=== PATIENT | female | born 2000 | race Caucasian/White ===

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

== ENCOUNTER 2018-03-15 05:41 | Observation (INO) | payer OTHER ==
[2018-03-15 06:57] VITALS: BMI 36.3
--- NOTE | 2018-03-15 07:14 | PDOC ---
History of Present Illness <Edilson Vazquez - Last Filed: 03/15/18 14:43> - General History Source: Patient Exam Limitations: No Limitations - History of Present Illness Initial Comments: 03/15/18 07:23 17 year old woman with no significant past medical history who presents with 6 days of sore throat, productive cough, diarrhea and intermittent R sided abdominal pain that would come on as sharp and then resolve and now with subjective fever and nausea overnight. The patient admits to some headache but denies chest pain, shortness of breath, current abdominal pain, dysuria, hematuria, vaginal discharge. The patient is taking OCPs and reports irregular menses since May. She is being followed by her PCP at [facility]. She has no other complaints at bedside. <Fátima Dinh - Last Filed: 03/15/18 18:41> - General Chief Complaint: Nausea/Vomiting Stated Complaint: FEVER/VOMITING Time Seen by Provider: 03/15/18 07:12 Past History <Edilson Vazquez - Last Filed: 03/15/18 14:43> - Past Medical History COPD: No DVT: No - Immunization History Immunization Up to Date: Yes - Suicide/Smoking/Psychosocial Hx Smoking Status: No Smoking History: Never smoked Have you smoked in the past 12 months: No Number of Cigarettes Smoked Daily: 0 Cigars Per Day: 0 Information on smoking cessation initiated: No Hx Alcohol Use: No Drug/Substance Use Hx: No Substance Use Type: None <Fátima Dinh - Last Filed: 03/15/18 18:41> - Past Medical History Allergies/Adverse Reactions: Allergies Allergy/AdvReac Type Severity Reaction Status Date / Time nickel Allergy Intermediate Verified 03/15/18 06:57 lactase [From Dairy Aid] Allergy Verified 03/15/18 06:57 lentils Allergy Verified 03/15/18 06:57 raw vegetable Allergy Verified 03/15/18 06:57 wheat Allergy Verified 03/15/18 06:57 Home Medications: Ambulatory Orders Nitrofurantoin Monohyd/M-Cryst [Macrobid -] 100 mg PO BID #14 capsule 03/15/18 Review of Systems - Review of Systems Able to Perform ROS?: Yes Is the patient limited Ukrainian proficient: No Constitutional: Yes: Fever. No: Chills, Diaphoresis HEENTM: No: Blurred Vision, Tinnitus Respiratory: Yes: Cough. No: Orthopnea, Shortness of Breath Cardiac (ROS): No: Chest Pain, Lightheadedness, Palpitations ABD/GI: Yes: Diarrhea, Nausea. No: Constipated, Vomiting : No: Burning, Dysuria, Hematuria Neurological: Yes: Headache. No: Numbness, Paresthesia, Tingling <Fátima Dinh - Last Filed: 03/15/18 18:41> *Physical Exam - Vital Signs Last Vital Signs Temp Pulse Resp BP Pulse Ox 98.2 F 101 H 18 123/76 97 03/15/18 05:45 03/15/18 05:45 03/15/18 05:45 03/15/18 05:45 03/15/18 05:45 <Edilson Vazquez - Last Filed: 03/15/18 14:43> - Vital Signs Last Vital Signs Temp Pulse Resp BP Pulse Ox 98.2 F 101 H 18 123/76 97 03/15/18 05:45 03/15/18 05:45 03/15/18 05:45 03/15/18 05:45 03/15/18 05:45 - Physical Exam Comments: 03/15/18 07:35 GENERAL: Awake, alert, and fully oriented, in no acute distress HEAD: No signs of trauma, normocephalic, atraumatic EYES: EOMI, sclera anicteric, conjunctiva clear ENT: oropharynx clear without exudates. Moist mucosa NECK: Normal ROM, supple LUNGS: No distress, speaks full sentences, clear to auscultation bilaterally HEART: Regular rate and rhythm, normal S1 and S2, no murmurs, rubs or gallops, peripheral pulses normal and equal bilaterally. ABDOMEN: Soft, nontender, normoactive bowel sounds. No guarding, no rebound. No masses EXTREMITIES : Normal inspection, Normal range of motion, no edema. No clubbing or cyanosis. NEUROLOGICAL: Cranial nerves II through XII grossly intact. Normal speech, normal gait, no focal sensorimotor deficits SKIN: Warm, Dry, normal turgor, no rashes or lesions noted <Fátima Dinh - Last Filed: 03/15/18 18:41> Moderate Sedation - Procedure Monitoring Vital Signs: Procedure Monitoring Vital Signs Temperature 98.2 F 03/15/18 05:45 Pulse Rate 101 H 03/15/18 05:45 Respiratory Rate 18 03/15/18 05:45 Blood Pressure 123/76 03/15/18 05:45 O2 Sat by Pulse Oximetry (%) 97 03/15/18 05:45 <TaylorEdilson - Last Filed: 03/15/18 14:43> - Procedure Monitoring Vital Signs: Procedure Monitoring Vital Signs Temperature 98.2 F 03/15/18 05:45 Pulse Rate 101 H 03/15/18 05:45 Respiratory Rate 18 03/15/18 05:45 Blood Pressure 123/76 03/15/18 05:45 O2 Sat by Pulse Oximetry (%) 97 03/15/18 05:45 <Fátima Dinh - Last Filed: 03/15/18 18:41> ED Treatment Course - LABORATORY CBC & Chemistry Diagram: 03/15/18 07:55 03/15/18 07:55 - ADDITIONAL ORDERS Additional order review: Laboratory Results 03/15/18 03/15/18 03/15/18 13:56 07:55 07:55 Sodium 138 Potassium 3.8 Chloride 107 Carbon Dioxide 22 Anion Gap 9 BUN 9 Creatinine 0.7 Creat Clearance w eGFR > 60 Random Glucose 90 Calcium 8.7 Total Bilirubin 0.2 AST 15 ALT 30 Alkaline Phosphatase 92 Total Protein 7.9 Albumin 3.9 Beta HCG, Quant 149.0 Urine Color Yellow Urine Appearance Cloudy Urine pH 5.0 Ur Specific [place] 1.030 Urine Protein 1+ H Urine Glucose (UA) Negative Urine Ketones Trace H Urine Blood Negative Urine Nitrite Positive Urine Bilirubin Negative Urine Urobilinogen Negative Ur Leukocyte Esterase Trace Urine WBC (Auto) 15 Urine RBC (Auto) 3 Ur Epithelial Cells Few Calcium Oxalate Crystal Few Urine Bacteria Moderate Urine Mucus Many Urine HCG, Qual Positive 03/15/18 07:55 RBC 4.27 MCV 83.4 MCHC 34.6 RDW 14.8 MPV 8.2 Neutrophils % 68.1 D Lymphocytes % 22.3 D Monocytes % 7.7 Eosinophils % 1.5 Basophils % 0.4 - Medications Given in the ED: ED Medications Discontinued Medications Generic Name Dose Route Start Last Admin Trade Name Freq PRN Reason Stop Dose Admin Acetaminophen 1,000 mg 03/15/18 07:24 03/15/18 08:02 Ofirmev Injection - IVPB 03/15/18 07:25 1,000 mg ONCE ONE Administration Ondansetron HCl 4 mg 03/15/18 07:24 03/15/18 08:02 Zofran Injection IVPUSH 03/15/18 07:25 4 mg ONCE ONE Administration <Alycia Vazquezan - Last Filed: 03/15/18 14:43> - LABORATORY CBC & Chemistry Diagram: 03/15/18 07:55 03/15/18 07:55 <Fátima Dinh - Last Filed: 03/15/18 18:41> Medical Decision Making - Medical Decision Making 03/15/18 07:33 17 year old woman with no significant past medical history who presents with 6 days of sore throat, productive cough, diarrhea and intermittent R sided abdominal pain that would come on as sharp and then resolve and now with subjective fever and nausea overnight. ED Course: Consider influenza vs uti vs viral URI cbc, cmp, ua, ucx, upreg tylenol, zofran, ivf 03/15/18 17:36 The patient had a positive urine test but TVUS could not visualize IUP cannot rule out ectopic Beta hcg at 1-2 weeks Patient with continued RLQ pain on reassessment Potisitve obturator and psoas test Cannot r/o appendicitis Less likely as afebrile without white count UA positive for UTI will dose macrobid Patient pending Pelvis US with potential MRI if appendix cannot be visualized. 03/15/18 18:28 appendix cannot be visualized, patient will need MRI in the AM Patient admitted for ED Obs <Fátima Dinh - Last Filed: 03/15/18 18:41> *DC/Admit/Observation/Transfer <Edilson Vazquez - Last Filed: 03/15/18 14:43> <Fátima Dinh - Last Filed: 03/15/18 18:41> Diagnosis at time of Disposition: Abdominal pain, - Discharge Dispostion Disposition: HOME Condition at time of disposition: Fair - Prescriptions Prescriptions: Nitrofurantoin Monohyd/M-Cryst [Macrobid -] 100 mg PO BID #14 capsule - Referrals Referrals: Pavithra Chaves [Primary Care Provider] - - Patient Instructions Printed Discharge Instructions: DI for Ectopic , DI for Abdominal Pain -- Early Additional Instructions: Your test today was positive. However, we did not see anything on your ultrasound today. This may be because it is still early in the . This may also be due to a condition called ectopic , a potentially life threatening emergency. You MUST follow up with an project facilitator or return to the ER in 48 hours for a repeat ultrasound and blood tests. If you experience recurrent or persistent pain, fevers, vomiting, vaginal bleeding, or any other concerning symptoms, return to the ER immediately. - Post Discharge Activity
[2018-03-15] MEDS ORDERED: SODIUM CHLORIDE 1,000 ML IV SCH (07:15)
[2018-03-15] MEDS ORDERED: ONDANSETRON 4 MG/2 ML VIAL IVPUSH ONE (07:24)
[2018-03-15] MEDS ORDERED: ACETAMINOPHEN 1000 MG/100 ML VIAL (NON FORMULARY) IVPB ONE (07:24)
[2018-03-15] MEDS ORDERED: ACETAMINOPHEN INJECTION 100 ML IVPB ONE (07:36)
[2018-03-15] MEDS ORDERED: ONDANSETRON 4 MG/2 ML VIAL ONE (07:36)
--- NOTE | 2018-03-15 07:55 | PDOC ---
Attending Attestation - Resident Resident Name: NikolasZane dashie - ED Attending Attestation I have performed the following: I have examined & evaluated the patient, The case was reviewed & discussed with the resident, I agree w/resident's findings & plan, Exceptions are as noted - HPI HPI: 03/15/18 07:51 17 F with no PMH presents to ED with fevers, nausea, abdominal pain, and sore throat. Pt states that she started having a sore throat 3 days ago. Pt started having subjective fevers last night. Did not take her temp. Today, pt notes feeling nauseous and having lower abdominal pain. Pt states the pain is localized to her RLQ. Endorses diarrhea. Denies vaginal discharge/bleeding. No dysuria. - Physicial Exam PE: 03/15/18 07:53 GENERAL: Awake, alert, and fully oriented, in no acute distress. HEAD: No signs of trauma EYES: PERRLA, EOMI, sclera anicteric, conjunctiva clear ENT: Auricles normal inspection, hearing grossly normal, nares patent, oropharynx clear without exudates. Moist mucosa NECK: Nontender, no stepoffs, Normal ROM, supple, no lymphadenopathy, JVD, or masses LUNGS: Breath sounds equal, clear to auscultation bilaterally. No wheezes, and no crackles HEART: Regular rate and rhythm, normal S1 and S2, no murmurs, rubs or gallops ABDOMEN: + RLQ tenderness, normoactive bowel sounds. No guarding, no rebound. No masses EXTREMITIES: Normal range of motion, no edema. No clubbing or cyanosis. No cords, erythema, or tenderness NEUROLOGICAL: Cranial nerves II through XII intact. 5/5 strength and sensation in all extremities, Normal speech, normal gait, normal cerebellar function SKIN: Warm, Dry, normal turgor, no rashes or lesions noted. - Medical Decision Making 03/15/18 07:55 17 F with fever, nausea, sore throat, abdominal pain. Likely viral syndrome. However, given RLQ tenderness, will r/o appendicitis. - Labs, UA, UPT - CTAP - IVF, zofran 03/15/18 12:11 UPT + Pt informed of result. States that her LMP was 1 month ago[address] Will cancel [address] at this time, obtain TVUS and beta HCG quantitative 03/15/18 14:52 TVUS with no visualization of IUP or R ovary. HCG only around 100. Pt reassessed - with persistent RLQ tenderness Will obtain US to r/o appy at this time, consider MRI if equivocal 03/15/18 17:55 Pt signed out to oncoming attending, pending T&S and imaging
[2018-03-15 08:46] LABS: HEMOGLOBIN 12.3 GM/dL (10.7-15.3); RBC 4.27 M/mm3 (3.60-5.2); WHITE BLOOD COUNT 9.8 K/mm3 (4.0-10.0)
[2018-03-15 08:47] LABS: HEMATOCRIT 35.6 % (32.4-45.2); MCH 28.9 pg (25.7-33.7); MCHC 34.6 g/dl (32.0-36.0); MEAN CELL VOLUME 83.4 fl (80-96); MEAN PLT VOLUME 8.2 fl (7.5-11.1); PLATELET COUNT 389 K/MM3 (134-434); RDW 14.8 % (11.6-15.6)
[2018-03-15 10:50] LABS: ALBUMIN 3.9 g/dl (3.4-5.0); ANION GAP 9 MMOL/L (8-16); BILIRUBIN,TOTAL 0.2 mg/dL (0.2-1); BLOOD UREA NITROGEN 9 mg/dL (7-18); CALCIUM 8.7 mg/dL (8.5-10.1); CHLORIDE 107 mmol/L (98-107); CO2 22 mmol/L (21-32); CREATININE 0.7 mg/dL (0.55-1.3); GLUCOSE,RANDOM 90 mg/dL (74-106); POTASSIUM 3.8 mmol/L (3.5-5.1); SGOT/AST 15 U/L (15-37); SODIUM 138 mmol/L (136-145); TOT PROT 7.9 g/dl (6.4-8.2)
[2018-03-15 10:51] LABS: ALK PHOS 92 U/L (45-117); SGPT/ALT 30 U/L (13-61)
[2018-03-15 13:30] LABS: BASO % 0.4 % (0-2.0); EOS % 1.5 % (0-4.5); LYMPH % 22.3 % (8-40); MONO % 7.7 % (3.8-10.2); NEUT % 68.1 % (42.8-82.8)
[2018-03-15] MEDS ORDERED: ACETAMINOPHEN 500 MG TABLET (FP) PO ONE (13:59)
[2018-03-15 14:21] LABS: URINE APPEARANCE CLOUDY; URINE BILIRUBIN NEGATIVE (<2.0 mg/dL); URINE COLOR YELLOW; URINE GLUCOSE (UA) NEGATIVE (NEGATIVE); URINE KETONE TRACE (NEGATIVE); URINE LEUK ESTERASE TRACE (NEGATIVE); URINE NITRITE POSITIVE (NEGATIVE); URINE PROTEIN 1+ (NEGATIVE); URINE UROBILINOGEN NEGATIVE mg/dL (0.2-1.0)
[2018-03-15 14:31] LABS: CALCIUM OXALATE CRYSTALS FEW /hpf (NONE SEEN); EPI CELLS FEW /HPF (FEW); URINE BACTERIA MODERATE /hpf (NONE SEEN); URINE MUCUS MANY
[2018-03-15] MEDS ORDERED: ACETAMINOPHEN 325 MG TABLET (FP) PO ONE (15:04)
[2018-03-15] MEDS ORDERED: ACETAMINOPHEN 325 MG TABLET (FP) ONE (16:59)
[2018-03-15 17:08] LABS: HCG,QUALITATIVE URINE Positive
--- NOTE | 2018-03-15 19:18 | PDOC ---
History of Present Illness - General Chief Complaint: Nausea/Vomiting Stated Complaint: FEVER/VOMITING Time Seen by Provider: 03/15/18 07:12 Past History - Past Medical History Allergies/Adverse Reactions: Allergies Allergy/AdvReac Type Severity Reaction Status Date / Time nickel Allergy Intermediate Verified 03/15/18 06:57 lactase [From Dairy Aid] Allergy Verified 03/15/18 06:57 lentils Allergy Verified 03/15/18 06:57 raw vegetable Allergy Verified 03/15/18 06:57 wheat Allergy Verified 03/15/18 06:57 Home Medications: Ambulatory Orders Nitrofurantoin Monohyd/M-Cryst [Macrobid -] 100 mg PO BID #14 capsule 03/15/18 COPD: No DVT: No - Immunization History Immunization Up to Date: Yes - Suicide/Smoking/Psychosocial Hx Smoking Status: No Smoking History: Never smoked Have you smoked in the past 12 months: No Number of Cigarettes Smoked Daily: 0 Cigars Per Day: 0 Information on smoking cessation initiated: No Hx Alcohol Use: No Drug/Substance Use Hx: No Substance Use Type: None Review of Systems - Review of Systems Is the patient limited Uzbek proficient: No *Physical Exam - Vital Signs Last Vital Signs Temp Pulse Resp BP Pulse Ox 98.2 F 115 H 18 119/67 100 03/15/18 05:45 03/15/18 19:11 03/15/18 19:11 03/15/18 19:11 03/15/18 19:11 Moderate Sedation - Procedure Monitoring Vital Signs: Procedure Monitoring Vital Signs Temperature 98.2 F 03/15/18 05:45 Pulse Rate 115 H 03/15/18 19:11 Respiratory Rate 18 03/15/18 19:11 Blood Pressure 119/67 03/15/18 19:11 O2 Sat by Pulse Oximetry (%) 100 03/15/18 19:11 ED Treatment Course - LABORATORY CBC & Chemistry Diagram: 03/15/18 07:55 03/15/18 07:55 - ADDITIONAL ORDERS Additional order review: Laboratory Results 03/15/18 03/15/18 03/15/18 17:10 13:56 07:55 Sodium 138 Potassium 3.8 Chloride 107 Carbon Dioxide 22 Anion Gap 9 BUN 9 Creatinine 0.7 Creat Clearance w eGFR > 60 Random Glucose 90 Calcium 8.7 Total Bilirubin 0.2 AST 15 ALT 30 Alkaline Phosphatase 92 Total Protein 7.9 Albumin 3.9 Beta HCG, Quant 149.0 Urine Color Urine Appearance Urine pH Ur Specific [place] Urine Protein Urine Glucose (UA) Urine Ketones Urine Blood Urine Nitrite Urine Bilirubin Urine Urobilinogen Ur Leukocyte Esterase Urine WBC (Auto) Urine RBC (Auto) Ur Epithelial Cells Calcium Oxalate Crystal Urine Bacteria Urine Mucus Urine HCG, Qual Blood Type O POSITIVE Antibody Screen Negative 03/15/18 07:55 Sodium Potassium Chloride Carbon Dioxide Anion Gap BUN Creatinine Creat Clearance w eGFR Random Glucose Calcium Total Bilirubin AST ALT Alkaline Phosphatase Total Protein Albumin Beta HCG, Quant Urine Color Yellow Urine Appearance Cloudy Urine pH 5.0 Ur Specific [place] 1.030 Urine Protein 1+ H Urine Glucose (UA) Negative Urine Ketones Trace H Urine Blood Negative Urine Nitrite Positive Urine Bilirubin Negative Urine Urobilinogen Negative Ur Leukocyte Esterase Trace Urine WBC (Auto) 15 Urine RBC (Auto) 3 Ur Epithelial Cells Few Calcium Oxalate Crystal Few Urine Bacteria Moderate Urine Mucus Many Urine HCG, Qual Positive Blood Type Antibody Screen 03/15/18 07:55 RBC 4.27 MCV 83.4 MCHC 34.6 RDW 14.8 MPV 8.2 Neutrophils % 68.1 D Lymphocytes % 22.3 D Monocytes % 7.7 Eosinophils % 1.5 Basophils % 0.4 - Medications Given in the ED: ED Medications Discontinued Medications Generic Name Dose Route Start Last Admin Trade Name Sarath PRN Reason Stop Dose Admin Acetaminophen 1,000 mg 03/15/18 07:24 03/15/18 08:02 Ofirmev Injection - IVPB 03/15/18 07:25 1,000 mg ONCE ONE Administration Acetaminophen 500 mg 03/15/18 13:59 03/15/18 16:54 Tylenol - PO 03/15/18 14:00 Not Given ONCE ONE Acetaminophen 650 mg 03/15/18 15:04 03/15/18 17:06 Tylenol - PO 03/15/18 15:05 650 mg ONCE ONE Administration Ondansetron HCl 4 mg 03/15/18 07:24 03/15/18 08:02 Zofran Injection IVPUSH 03/15/18 07:25 4 mg ONCE ONE Administration Medical Decision Making - Medical Decision Making 03/15/18 19:[address] Dinh. Patient is a 17 yo female w/ no pmh who presents for evaluation of RLQ pain in setting of newly diagnosed in ED concerning for appendicitis vs. ectopic . Patient will be admitted to hospital as past ED obs time-point per hospital policy. Patient currently pending MRI availability for the AM. 03/15/18 20:33 Discussed patient with inpatient team who will admit for further care. *DC/Admit/Observation/Transfer Diagnosis at time of Disposition: Abdominal pain Qualifiers: Abdominal location: unspecified location Qualified Code(s): R10.9 - Unspecified abdominal pain Qualifiers: Weeks of gestation: unspecified Qualified Code(s): Z34.90 - Encounter for supervision of normal , unspecified, unspecified trimester - Discharge Dispostion Condition at time of disposition: Fair Decision to Admit order: Yes - Prescriptions Prescriptions: Nitrofurantoin Monohyd/M-Cryst [Macrobid -] 100 mg PO BID #14 capsule - Referrals Referrals: Pavithra Chaves [Primary Care Provider] - - Patient Instructions Printed Discharge Instructions: DI for Ectopic , DI for Abdominal Pain -- Early Additional Instructions: Your test today was positive. However, we did not see anything on your ultrasound today. This may be because it is still early in the . This may also be due to a condition called ectopic , a potentially life threatening emergency. You MUST follow up with an oil well services dispatcher or return to the ER in 48 hours for a repeat ultrasound and blood tests. If you experience recurrent or persistent pain, fevers, vomiting, vaginal bleeding, or any other concerning symptoms, return to the ER immediately. - Post Discharge Activity
--- NOTE | 2018-03-15 21:09 | PN ---
Teaching Attending Note Name of Resident: Len Cornejo ATTENDING PHYSICIAN STATEMENT I saw and evaluated the patient. I reviewed the resident's note and discussed the case with the resident. I agree with the resident's findings and plan as documented. SUBJECTIVE: Patient is a 17 year old woman with no significant PMH who presents with 6 days of sore throat, productive cough, diarrhea and intermittent R sided abdominal pain that would come on as sharp and then resolve and now with subjective fever and nausea overnight. The patient admits to some headache but denies chest pain , shortness of breath, current abdominal pain, dysuria, hematuria, vaginal discharge. The patient is taking OCPs and reports irregular menses since May. She is being followed by her PCP at [facility]. OBJECTIVE: Alert Vital Signs Period Temp Pulse Resp BP Sys/Ferguson Pulse Ox Last 24 Hr 98.2 F-98.7 F 88-115 18-18 114-123/67-76 97-100 HEENT: No Jaundice, eye redness or discharge, PERRLA, EOMI. Normocephalic, atraumatic. External ears are normal and hearing is grossly intact. No nasal discharge. Neck: Supple, nontender. No palpable adenopathy or thyromegaly. No JVD Chest: Good effort. Clear to auscultation and percussion. Heart: Regular. No S3, rub or murmur Abdomen: Not distended, soft, RLQ tenderness and no HSM. No rebound or guarding. Normoactive bowel sounds. Ext: Peripheral pulses intact. No leg edema. Skin: Warm and dry. No petechiae, rash or ecchymosis. Neuro: Alert. Oriented x3. CN 2-12 grossly intact. Sensation grossly intact in all four extremities and DTR are symmetric. Current Medications Generic Name Dose Route Start Last Admin Trade Name Freq PRN Reason Stop Dose Admin Sodium Chloride 1,000 mls @ 0 mls/hr 03/15/18 07:15 03/15/18 08:02 Normal Saline - IV 1,000 mls/hr ASDIR YASH Administration Wide Open Nitrofurantoin Macrocrystals 100 mg 03/15/18 22:00 Macrodantin - PO BID [facility] Home Medications Medication Instructions Recorded Nitrofurantoin Monohyd/M-Cryst 100 mg PO BID #14 capsule 03/15/18 [Macrobid -] Abnormal Lab Results 03/15/18 07:55 Urine Protein 1+ H Urine Ketones Trace H ASSESSMENT AND PLAN: 1. Abdominal pain and UTI in Early - Being treated with Augmentin for UTI. Tate concern is to rule out appendicitis and ectopic . Will get repeat ultrasound, repeat serum Beta HCG, check CRP and consult surgery and Ob/ Glass Curvature Gauger. 2. Obesity - Post , will provide patient all the necessary assistance, counseling and positive reinforcement to facilitate weight loss. Consult rolled ham lacer. 3. DVT prophylaxis - Heparin 5000u sq tid. 4. Advance directives - Full code
--- NOTE | 2018-03-15 21:26 | HP ---
CHIEF COMPLAINT: PCP: HISTORY OF PRESENT ILLNESS: 17 yo F with no significant PMH, p/w sore throat, productive cough, NB diarrhea x6d and intermittent sharp RLQ abdominal pain x 3d with subjective fever and nausea overnight. pt says flu like sxs began last week Friday after a night of partying w/ a lot of alcohol, although she dose recall that her fellow co- workers at [employer] in [place] had been sick the prior week w/ similar flu like sxs. Pt abdominal pain began Sat night after she noticed pink spotting from her vagina. Patient admits to some headache but denies chest pain, shortness of breath, dysuria, hematuria, vaginal discharge, hx STDs. The patient is taking OCPs and reports irregular menses since May. She is being followed by her PCP at [facility]. Of note pt endorses frequent UTIs and uses a wash for vagina same sexual partner for 5 years ER course was notable for: (1) 1L NS, zofran, tylenol (2) UA - wbc 15, trace leuk est, +nitrite, moderate bacteria (3) beta Hcg 149. pelvic/trans vag U/S Recent Travel: PAST MEDICAL HISTORY: had irregular menses back in summer 2017 and then was started on OCPs LMP 1mo ago PAST SURGICAL HISTORY: Social History: Smoking: occasional Alcohol: occasional Drugs: marijuana in high school works at [employer] Family History: Allergies nickel Allergy (Intermediate, Verified 03/15/18 06:57) lactase [From Dairy Aid] Allergy (Verified 03/15/18 06:57) lentils Allergy (Verified 03/15/18 06:57) raw vegetable Allergy (Verified 03/15/18 06:57) wheat Allergy (Verified 03/15/18 06:57) HOME MEDICATIONS: Home Medications Medication Instructions Recorded Nitrofurantoin Monohyd/M-Cryst 100 mg PO BID #14 capsule 03/15/18 [Macrobid -] REVIEW OF SYSTEMS as per hpi PHYSICAL EXAMINATION Vital Signs - 24 hr 03/15/18 03/15/18 03/15/18 05:45 14:52 19:05 Temperature 98.2 F 98.7 F Pulse Rate 101 H Pulse Rate [ 88 115 H Left Radial] Respiratory 18 18 Rate Blood Pressure 123/76 Blood Pressure 114/74 [Right Arm] O2 Sat by Pulse 97 98 Oximetry (%) 03/15/18 19:11 Temperature Pulse Rate Pulse Rate [ 115 H Left Radial] Respiratory 18 Rate Blood Pressure Blood Pressure 119/67 [Right Arm] O2 Sat by Pulse 100 Oximetry (%) GENERAL: AOX3 NAD, obese HEAD: NCAT EYES: extraocular movements intact, sclera anicteric, conjunctiva clear. No lid lag. EARS, NOSE, THROAT: nares patent, oropharynx clear without exudates. MMM NECK: Normal range of motion, supple without lymphadenopathy, JVD, or masses. LUNGS: CTAB HEART: RRR, normal S1 and S2 without m/r/g ABDOMEN: Soft, TTP RLQ, +PSOAS sign b/l, + obturator sign not distended, normoactive bowel sounds, no guarding, no rebound, no masses. MUSCULOSKELETAL: Normal range of motion at all joints. No bony deformities or tenderness. UPPER EXTREMITIES: 2+ pulses, warm, well-perfused. No cyanosis. No clubbing. No peripheral edema. LOWER EXTREMITIES: 2+ pulses, warm, well-perfused. No calf tenderness. No peripheral edema. NEUROLOGICAL: Cranial nerves II-XII intact. Normal speech. PSYCHIATRIC: Cooperative. Good eye contact. Appropriate mood and affect. SKIN: Warm, dry, normal turgor, no rashes or lesions noted, normal capillary refill. Laboratory Results - last 24 hr 03/15/18 03/15/18 03/15/18 07:55 07:55 07:55 WBC 9.8 RBC 4.27 Hgb 12.3 Hct 35.6 MCV 83.4 MCH 28.9 MCHC 34.6 RDW 14.8 Plt Count 389 MPV 8.2 Absolute Neuts (auto) 6.7 Neutrophils % 68.1 D Lymphocytes % 22.3 D Monocytes % 7.7 Eosinophils % 1.5 Basophils % 0.4 Nucleated RBC % 0 Sodium 138 Potassium 3.8 Chloride 107 Carbon Dioxide 22 Anion Gap 9 BUN 9 Creatinine 0.7 Creat Clearance w eGFR > 60 Random Glucose 90 Calcium 8.7 Total Bilirubin 0.2 AST 15 ALT 30 Alkaline Phosphatase 92 Total Protein 7.9 Albumin 3.9 Beta HCG, Quant Urine Color Yellow Urine Appearance Cloudy Urine pH 5.0 Ur Specific Seaton 1.030 Urine Protein 1+ H Urine Glucose (UA) Negative Urine Ketones Trace H Urine Blood Negative Urine Nitrite Positive Urine Bilirubin Negative Urine Urobilinogen Negative Ur Leukocyte Esterase Trace Urine WBC (Auto) 15 Urine RBC (Auto) 3 Ur Epithelial Cells Few Calcium Oxalate Crystal Few Urine Bacteria Moderate Urine Mucus Many Urine HCG, Qual Positive Influenza A (Rapid) Influenza B (Rapid) Blood Type Antibody Screen 03/15/18 03/15/18 03/15/18 07:55 13:56 17:10 WBC RBC Hgb Hct MCV MCH MCHC RDW Plt Count MPV Absolute Neuts (auto) Neutrophils % Lymphocytes % Monocytes % Eosinophils % Basophils % Nucleated RBC % Sodium Potassium Chloride Carbon Dioxide Anion Gap BUN Creatinine Creat Clearance w eGFR Random Glucose Calcium Total Bilirubin AST ALT Alkaline Phosphatase Total Protein Albumin Beta HCG, Quant 149.0 Urine Color Urine Appearance Urine pH Ur Specific Seaton Urine Protein Urine Glucose (UA) Urine Ketones Urine Blood Urine Nitrite Urine Bilirubin Urine Urobilinogen Ur Leukocyte Esterase Urine WBC (Auto) Urine RBC (Auto) Ur Epithelial Cells Calcium Oxalate Crystal Urine Bacteria Urine Mucus Urine HCG, Qual Influenza A (Rapid) Negative Influenza B (Rapid) Negative Blood Type O POSITIVE Antibody Screen Negative ASSESSMENT/PLAN: 17 yo F with no significant PMH, p/w sore throat, productive cough, NB diarrhea x6d and intermittent sharp RLQ abdominal pain x 3d with subjective fever and nausea overnight. RLQ Abdominal pain and UTI in Early - possibly 2/2 appendicitis vs ectopic . 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 consider surgery consult and rpt U/S pain ctl w/ tylenol Obesity - BMI 36.4 FEN LR 100cc replete prn NPO except meds pending possible surgery eval and resolution/improvement of sxs DVT prophylaxis SQH Full code Dispo Obs Visit type - Emergency Visit Emergency Visit: Yes ED Registration Date: 03/15/18 Care time: The patient presented to the Emergency Department on the above date and was hospitalized for further evaluation of their emergent condition. - New Patient This patient is new to me today: Yes Date on this admission: 03/16/18 - Critical Care Critical Care patient: No
[2018-03-15] MEDS ORDERED: NITROFURANTOIN MACROCRYSTAL 50 MG CAPSULE (FP) PO SCH (22:00)
[2018-03-15] MEDS ORDERED: LACTATED RINGERS SOLUTION 1,000 ML IV SCH (22:15)
[2018-03-15] MEDS ORDERED: AMOX TR/POT CLAV 875MG/125MG TABLETS (FP) PO SCH (22:21)
[2018-03-15] MEDS ORDERED: ACETAMINOPHEN 325 MG TABLET (FP) PO PRN (22:22)
[2018-03-15] MEDS: HEPARIN NA (PORCINE) 5,000 UNITS/ML 1ML VIAL SQ SCH (22:32)
[2018-03-15] MEDS ORDERED: AMOX TR/POT CLAV 875MG/125MG TABLETS (FP) ONE (23:10)
[2018-03-15] MEDS ORDERED: HEPARIN NA (PORCINE) 5,000 UNITS/ML 1ML VIAL ONE (23:10)
[2018-03-16] MEDS: HEPARIN NA (PORCINE) 5,000 UNITS/ML 1ML VIAL SQ SCH (07:10)
[2018-03-16 07:25] LABS: INR 1.15 (0.83-1.09); PROTHROMBIN TIME (PATIENT) 13.6 SEC (9.7-13.0)
[2018-03-16 07:26] LABS: ACTIVATED PTT 30.5 SECONDS (25.2-36.5)
[2018-03-16 08:00] LABS: ALK PHOS 64 U/L (45-117); ANION GAP 7 MMOL/L (8-16); BILIRUBIN,TOTAL 0.5 mg/dL (0.2-1); BLOOD UREA NITROGEN 6 mg/dL (7-18); CALCIUM 7.4 mg/dL (8.5-10.1); CHLORIDE 106 mmol/L (98-107); CO2 22 mmol/L (21-32); CREATININE 0.4 mg/dL (0.55-1.3); GLUCOSE,RANDOM 82 mg/dL (74-106); MAGNESIUM 1.8 mg/dL (1.8-2.4); PHOSPHOROUS 2.8 mg/dL (2.5-4.9); POTASSIUM 3.4 mmol/L (3.5-5.1); SGOT/AST 11 U/L (15-37); SGPT/ALT 30 U/L (13-61); SODIUM 136 mmol/L (136-145); TOT PROT 6.3 g/dl (6.4-8.2)
[2018-03-16 08:24] LABS: BASO % 0.3 % (0-2.0); EOS % 1.3 % (0-4.5); HEMATOCRIT 30.9 % (32.4-45.2); MCH 29.8 pg (25.7-33.7); MCHC 35.5 g/dl (32.0-36.0); MEAN CELL VOLUME 83.8 fl (80-96); MEAN PLT VOLUME 8.4 fl (7.5-11.1); MONO % 7.6 % (3.8-10.2); NEUT % 67.8 % (42.8-82.8); PLATELET COUNT 317 K/MM3 (134-434); RBC 3.69 M/mm3 (3.60-5.2); WHITE BLOOD COUNT 5.8 K/mm3 (4.0-10.0)
[2018-03-16] MEDS ORDERED: CEFTRIAXONE 1 GM in DEXTROSE 5%-WATER - 50 ML IVPB ONE (08:52)
--- NOTE | 2018-03-16 09:03 | PN ---
Teaching Attending Note Name of Resident: Mervat Buenrostro ATTENDING PHYSICIAN STATEMENT I saw and evaluated the patient. I reviewed the resident's note and discussed the case with the resident. I agree with the resident's findings and plan as documented. SUBJECTIVE: Patient is c/o having diarrhea, and having nausea and vomiting. 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 Patient stated that she had a fatty food the day before she had the pain. OBJECTIVE: Vital Signs Temperature 99.8 F H 03/16/18 05:50 Pulse Rate 104 H 03/16/18 05:50 Respiratory Rate 20 03/16/18 05:50 Blood Pressure 120/72 03/16/18 05:50 O2 Sat by Pulse Oximetry (%) 99 03/15/18 21:59 Initial Vital Signs Temp Pulse Resp BP Pulse Ox 98.2 F 101 H 18 123/76 97 03/15/18 05:45 03/15/18 05:45 03/15/18 05:45 03/15/18 05:45 03/15/18 05:45 GENERAL: AOX3 NAD, obese ,cushinoid neck, nice female. HEAD: NCAT, NECK: supple , no JVD, or masses. no lymphadenopathy EYES: extraocular movements intact, sclera anicteric, conjunctiva clear. EARS, NOSE, THROAT: oropharynx clear without exudates. MMM LUNGS: CTAB HEART: RRR, normal S1 and S2 without m/r/g ABDOMEN: Soft, RUq mild tenderness, normoactive bowel sounds, no guarding, no rebound, no masses. MUSCULOSKELETAL: Normal range of motion at all joints. No bony deformities or tenderness. EXTREMITIES: 2+ pulses, warm, well-perfused. No calf tenderness. No peripheral edema. NEUROLOGICAL: Cranial nerves II-XII intact. Normal speech. PSYCHIATRIC: Cooperative. Good eye contact. Appropriate mood and affect. SKIN: Warm, dry, normal turgor, no rashes or lesions noted, normal capillary refill. CBCD WBC 5.8 K/mm3 (4.0-10.0) 03/16/18 06:30 RBC 3.69 M/mm3 (3.60-5.2) 03/16/18 06:30 Hgb 11.0 GM/dL (10.7-15.3) 03/16/18 06:30 Hct 30.9 % (32.4-45.2) L 03/16/18 06:30 MCV 83.8 fl (80-96) 03/16/18 06:30 MCHC 35.5 g/dl (32.0-36.0) 03/16/18 06:30 RDW 15.0 % (11.6-15.6) 03/16/18 06:30 Plt Count 317 K/MM3 (134-434) 03/16/18 06:30 MPV 8.4 fl (7.5-11.1) 03/16/18 06:30 CMP Sodium 136 mmol/L (136-145) 03/16/18 06:30 Potassium 3.4 mmol/L (3.5-5.1) L 03/16/18 06:30 Chloride 106 mmol/L (98-107) 03/16/18 06:30 Carbon Dioxide 22 mmol/L (21-32) 03/16/18 06:30 Anion Gap 7 MMOL/L (8-16) L 03/16/18 06:30 BUN 6 mg/dL (7-18) L 03/16/18 06:30 Creatinine 0.4 mg/dL (0.55-1.3) L 03/16/18 06:30 Creat Clearance w eGFR > 60 (>60) 03/16/18 06:30 Random Glucose 82 mg/dL (74-106) 03/16/18 06:30 Calcium 7.4 mg/dL (8.5-10.1) L 03/16/18 06:30 Total Bilirubin 0.5 mg/dL (0.2-1) 03/16/18 06:30 AST 11 U/L (15-37) L 03/16/18 06:30 ALT 30 U/L (13-61) 03/16/18 06:30 Alkaline Phosphatase 64 U/L (45-117) 03/16/18 06:30 Total Protein 6.3 g/dl (6.4-8.2) L 03/16/18 06:30 Albumin 3.0 g/dl (3.4-5.0) L 03/16/18 06:30 Current Medications Generic Name Dose Route Start Last Admin Trade Name Freq PRN Reason Stop Dose Admin Acetaminophen 650 mg 03/15/18 22:22 Tylenol - PO Q4H PRN PAIN LEVEL 1-5 OR FEVER Ceftriaxone Sodium 1 gm/ 100 mls @ 200 mls/hr 03/16/18 08:52 Dextrose IVPB 03/16/18 09:21 ONCE ONE Protocol Potassium Chloride/Dextrose/Sod Cl 20 meq in 1,000 mls @ 125 mls/hr 03/16/18 09:15 D5-1/2ns+20 Meq Kcl - IV ASDIR YASH Influenza Virus Vaccine Quadrival 60 mcg 03/18/18 10:00 Fluarix Quad [id number] Syringe IM 03/18/18 10:01 ONCE ONE Home Medications Medication Instructions Recorded Nitrofurantoin Monohyd/M-Cryst 100 mg PO BID #14 capsule 03/15/18 [Macrobid -] Microbiology 03/16/18 08:40 Stool Clostridium difficile Antigen (AYO) - Preliminary 03/16/18 08:40 Stool Clostridium difficile Toxin Assay - Preliminary 03/15/18 07:55 Urine - Urine Clean Catch Urine Culture - Preliminary Lactose Fermenting Neg Bacilli ASSESSMENT AND PLAN: Patient is a 17yo Female with no significant PMHx, presented to ED. c/o having sore throat, productive cough, diarrhea x 6 and intermittent sharp RLQ abdominal pain x 3day , stated that everybody is sick at work. with subjective fever and nausea overnight. # RUQ pain this morning, us of abdomen to r/o gallstones. in ED. was ordered MRI of abdomen but as per nurse, radiology is hesitant to do the MRi of the abdomen, since patient is 2 weeks . surgical evaluation by dr Rivero for questionable appendicitis. # Acute UTI growing LFNB , on Rocephin IV now, will wait for Culture sensitivity # Ua growing calcium oxalate: will order Us of the kidneys to r/o kidney stones. # early : pelvic/trans vag U/S - non visualization of R ovary , L ovary nl, no free fluid in cul-de-sac, no intrauterine gestation sac seen, sig thickened endometrial stripe 2.2cm AP dimension , Manager Assessment consult appreciated. # Obesity with BMI of 36k # Diarrhea growing positive for antigen , negative for toxin, will ask id to see the patient. DVT PX: early ambulation r
--- NOTE | 2018-03-16 09:40 | EKG ---
Test Reason : Blood Pressure : / mmHG Vent. Rate : 100 BPM Atrial Rate : 100 BPM P-R Int : 146 ms QRS Dur : 084 ms QT Int : 342 ms P-R-T Axes : 043 -12 009 degrees QTc Int : 441 ms NORMAL SINUS RHYTHM MINIMAL VOLTAGE CRITERIA FOR LVH, MAY BE NORMAL VARIANT BORDERLINE ECG WHEN COMPARED WITH ECG OF 06-JAN-2014 02:26, VENT. RATE HAS INCREASED Confirmed by HERSON MONTALVO, MARKO ([id number]) on 03/16/2018 9:39:52 AM Referred By: Confirmed By:MARKO BAINS MD
--- NOTE | 2018-03-16 10:14 | CON.OBG ---
Consult Consult Specialty:: Gynecology - History of Present Illness Chief Complaint: Nausea, diarrhea, RLQ pain. LMP early February, unusually sort period on OCP. HCG 171 - Past Medical History ...LMP Comment: irregular period. ...: Yes - Alcohol/Substance Use Hx Alcohol Use: No - Smoking History Smoking history: Never smoked Have you smoked in the past 12 months: No Aproximately how many cigarettes per day: 0 Home Medications - Allergies Allergies/Adverse Reactions: Allergies Allergy/AdvReac Type Severity Reaction Status Date / Time nickel Allergy Intermediate Verified 03/15/18 06:57 lactase [From Dairy Aid] Allergy Verified 03/15/18 06:57 lentils Allergy Verified 03/15/18 06:57 raw vegetable Allergy Verified 03/15/18 06:57 wheat Allergy Verified 03/15/18 06:57 - Home Medications Home Medications: Ambulatory Orders Nitrofurantoin Monohyd/M-Cryst [Macrobid -] 100 mg PO BID #14 capsule 03/15/18 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
[2018-03-16] MEDS ORDERED: cefTRIAXone SODIUM 1 GM VIAL ONE (10:53)
[2018-03-16] MEDS ORDERED: DEXTROSE 5%-WATER - 50 ML IVPB ONE (10:53)
[2018-03-16] MEDS: D5-1/2NS+20 MEQ KCL - 20 MEQ/1,000 ML INFUS.BAG IV SCH ×2 (12:00→21:00)
--- NOTE | 2018-03-16 13:32 | PN ---
Physical Exam: SUBJECTIVE: Patient seen and examined at bedside. No acute events overnight. Pt still complaining of watery diarrhea and abd pain. Denies chest pain, sob, viramontes/d , urinary symptoms. Denies blood in urine/stool. OBJECTIVE: Vital Signs Temperature 99.8 F H 03/16/18 09:00 Pulse Rate 88 03/16/18 09:00 Respiratory Rate 20 03/16/18 09:00 Blood Pressure 120/54 L 03/16/18 09:00 O2 Sat by Pulse Oximetry (%) 99 03/15/18 21:59 GENERAL: AAOx3. NAD. Obese. HEENT: AT/NC. EOMI. CELIA. Moist mucus membranes. LUNGS: CTA B/L. No wheezes noted. HEART: RRR, normal S1 and S2 without m/r/g ABDOMEN: Soft, mildly TTP in RLQ. -Babin sign. -Rovsing sign. No rebound tenderness. No masses noted. Hypoactive bowel sounds. MUSCULOSKELETAL: Normal range of motion at all joints. No bony deformities or tenderness. UPPER EXTREMITIES: 2+ pulses, warm, well-perfused. No cyanosis. No clubbing. No peripheral edema. LOWER EXTREMITIES: 2+ pulses, warm, well-perfused. No calf tenderness. No peripheral edema. NEUROLOGICAL: Cranial nerves II-XII intact. Normal speech. PSYCHIATRIC: Cooperative. Good eye contact. Appropriate mood and affect. SKIN: Warm, dry, normal turgor, no rashes or lesions noted, normal capillary refill. CBCD WBC 5.8 K/mm3 (4.0-10.0) 03/16/18 06:30 RBC 3.69 M/mm3 (3.60-5.2) 03/16/18 06:30 Hgb 11.0 GM/dL (10.7-15.3) 03/16/18 06:30 Hct 30.9 % (32.4-45.2) L 03/16/18 06:30 MCV 83.8 fl (80-96) 03/16/18 06:30 MCHC 35.5 g/dl (32.0-36.0) 03/16/18 06:30 RDW 15.0 % (11.6-15.6) 03/16/18 06:30 Plt Count 317 K/MM3 (134-434) 03/16/18 06:30 MPV 8.4 fl (7.5-11.1) 03/16/18 06:30 CMP Sodium 136 mmol/L (136-145) 03/16/18 06:30 Potassium 3.4 mmol/L (3.5-5.1) L 03/16/18 06:30 Chloride 106 mmol/L (98-107) 03/16/18 06:30 Carbon Dioxide 22 mmol/L (21-32) 03/16/18 06:30 Anion Gap 7 MMOL/L (8-16) L 03/16/18 06:30 BUN 6 mg/dL (7-18) L 03/16/18 06:30 Creatinine 0.4 mg/dL (0.55-1.3) L 03/16/18 06:30 Creat Clearance w eGFR > 60 (>60) 03/16/18 06:30 Calcium 7.4 mg/dL (8.5-10.1) L 03/16/18 06:30 Total Bilirubin 0.5 mg/dL (0.2-1) 03/16/18 06:30 AST 11 U/L (15-37) L 03/16/18 06:30 ALT 30 U/L (13-61) 03/16/18 06:30 Alkaline Phosphatase 64 U/L (45-117) 03/16/18 06:30 Total Protein 6.3 g/dl (6.4-8.2) L 03/16/18 06:30 Albumin 3.0 g/dl (3.4-5.0) L 03/16/18 06:30 Active Medications Acetaminophen (Tylenol -) 650 mg PO Q4H PRN PRN Reason: PAIN LEVEL 1-5 OR FEVER Potassium Chloride/Dextrose/Sod Cl (D5-1/2ns+20 Meq Kcl -) 20 meq in 1,000 mls @ 125 mls/hr IV ASDIR YASH Stop: 03/17/18 17:14 Last Admin: 03/16/18 12:00 Dose: 125 mls/hr Ceftriaxone Sodium 1 gm/ (Dextrose) 50 mls @ 100 mls/hr IVPB DAILY YASH; Protocol Influenza Virus Vaccine Quadrival (Fluarix Quad [id number] Syringe) 60 mcg IM ONCE ONE Stop: 03/18/18 10:01 CONSULT: OBJONATHON- Dr. Strong Surg- Dr. Rivero ID- Dr. Jiménez IMAGING: * Transvaginal U/S: Significantly thickened endometrial stripe 2.2 cm in AP dimension. No IU gestational sac present. No free fluid in cul-de-sac. Non- visualization of R ovary. * Pelvic U/S: Nonvisualization of appendix. No free fluid/collection in RLQ or Shabazz's pouch. ASSESSMENT/PLAN: 17F with no significant PMH, p/w sore throat, productive cough, NB diarrhea x6d and intermittent sharp RLQ abdominal pain x 3d with subjective fever and nausea overnight. #RLQ Abdominal pain; ddx includes viral gastroenteritis vs. C. diff vs. UTI vs. kidney stone vs. possible appendicitis -MRI previously ordered, but radiology hesitant to perform imaging due to . Will obtain surg consult to r/o appendicitis; f/u surg recs. -Tylenol 650 mg PO Q4H PRN for pain #UTI; Pt is asymptomatic, but is currently with UTI -U/A +few calcium oxalate, Wbc 15, trace leuk est, +nitrite, moderate bacteria -UCx +LFNB, await c/s panel -Ceftriaxone 1 gm IVPB QD (started 03/16/18); 1 dose of Augmentin given yesterday -Renal U/S ordered to r/o kidney stones as U/A showed +calcium oxalate #Diarrhea; Pt complaining of watery diarrhea. Unable to -C. diff +Ag, but -toxin. ID consult ordered, f/u recs. #Early ; IU gestational sec undetectable on U/S at this time -Transvaginal U/S noted above. -OBGYN consulted, recs appreciated -OBGYN outpatient followup #Obesity - BMI 36.4 -diet counseling/lifestyle modification #FEN -D5-1/2NS + KCl -recheck lytes in AM -NPO except meds pending possible surgery eval and resolution/improvement of sxs #Prophylaxis DVT- SQH Dispo -obs -full code Visit type - Emergency Visit Emergency Visit: Yes ED Registration Date: 03/15/18 Care time: The patient presented to the Emergency Department on the above date and was hospitalized for further evaluation of their emergent condition. - New Patient This patient is new to me today: Yes Date on this admission: 03/16/18 - Critical Care Critical Care patient: No
[2018-03-16] MEDS ORDERED: PRENATAL VITAMINS W/ FOLIC ACID TABLET (FP) PO SCH (16:15)
--- NOTE | 2018-03-16 17:09 | PN ---
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
--- NOTE | 2018-03-16 18:48 | CONS ---
DATE OF CONSULTATION: DATE OF DICTATION: 03/16/2018 INFECTIOUS DISEASE CONSULTATION HISTORY OF PRESENT ILLNESS: This is a 17-year-old woman. 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 She presented with a cough, cold symptoms that began on Friday after 's Prema. She had been out drinking with her friends celebrating. The cough persisted Friday, . She lost her voice on Friday and developed some stomach pain. Friday the stomach pain increased. She had no vomiting but nausea. She had 3 or 4 episodes of diarrhea. She presented to the ER. In the ER she had a white count of 9.8, a hemoglobin of 12.3. She was afebrile. She was admitted for further evaluation. At that time, she had a pelvic and transvaginal ultrasound that showed of the appendix. There was no free fluid in the right lower quadrant. She had a transvaginal ultrasound that was notable for thickened endometrial stripe. She had a test done and was found to have a very early they think about 2 weeks. I am asked to see her. She was started on ceftriaxone for a possible UTI. I am asked to see her because she now has stools were sent for culture and C. difficile, and her C. difficile antigen is positive with . She is waiting to be seen by surgery as well. She denies any vomiting. She notes today as well she had 3 episodes of nonbloody stools and that she continues to have some right-sided discomfort. PAST MEDICAL HISTORY: Notable for the fact she takes oral contraceptives, and she has never had any surgery. SOCIAL HISTORY: She is a costume seamstress, occasional alcohol and cigarette use. She is allergic to various foods, and she is lactose intolerant as well. There is no history of any recent travel. FAMILY HISTORY: Her family history is noncontributory. PHYSICAL EXAMINATION: VITAL SIGNS: Her T-max is 99.8, current temperature 99.6, pulse 88, blood pressure 112/70, respiratory rate 20. GENERAL: She is a well appearing woman in no acute distress. HEENT: Normocephalic. Eyes are anicteric. She has no thrush or pharyngitis. NECK: Supple. LUNGS: Clear to auscultation. HEART: Regular rate and rhythm. ABDOMEN: Soft. She has some mild right CVA discomfort. As well she has some right almost flank pain on the right side, on the lower flank area. She has no suprapubic tenderness. LABORATORY: Her white count this morning is 5.8, hemoglobin 11, platelets 317, INR is 1, BUN and creatinine are 6 and 0.4, LFTs are normal. Her urinalysis has 15 white cells, and her urine beta HCG is positive. Influenza A and B are negative. Urine culture is growing lactose fermenting gram-negative rods. She just had a renal sonogram that is unremarkable. She was seen by COUNTER WEIGHER as well. IMPRESSION: In summary, this is a young lady with right sided abdominal pain, 2 weeks . I suspect has a urinary tract infection, questionable pyelo. Surgery to evaluate right lower quadrant pain. I doubt she has Clostridium difficile. No risk factors and toxin is negative. I would continue Rocephin for urinary tract infection, surgery to see for possible appendicitis, would observe her diarrhea at this time, no need to treat for Clostridium difficile at present. This is discussed with the hospitalist. Further recommendations to follow. ONI MANZANARES M.D. [id number]
--- NOTE | 2018-03-16 21:37 | CONSULT ---
Consult Consult Specialty:: General Surgery Referred by:: Dr. Grier Reason for Consultation:: ?appendicitis - History of Present Illness Chief Complaint: RLQ pain, diarrhea, nausea History of Present Illness: 17yo F with no sig PMH, no surgical hx, began having RLQ pain Friday, which was intermittent, but became worse on Friday and significant on Sat night. It was associated with nausea but no vomiting, and a change in her usual lactose- intolerant diarrhea to mainly water/watery stool on Friday. She felt hot on Friday as well, and early Friday morning came to ER. She had also been out drinking for [employer] ', which she only does occasionally (last before that December), and coworkers have also been sick recently as well. She initially thought the pain might be related to her period, which is normally irregular, and she spotted on Friday, but had only 3d of menses in February, normal 6d not since January. She is sexually active with one partner, last about a week ago. No history of STDs. She smokes hookah and MJ occasionally, MJ last on Friday, no cigarettes. In the ER, she had normal wbc and labs, but her test was positive, and HCG was 149. Repeat today was 171. Also, her UTI and urine culture suggest a possible UTI, culture is pending growing LF GNB. She has been seen by DIRECTOR MEDICAL SCIENCE and ID, and is on Ceftriaxone for the UTI. C. diff was sent and is antigen +, toxin negative, but true C. diff infection is unlikely, per history and ID. US pelvic and transvaginal showed uterus with enlarged endometrial stripe, no IUP, no free fluid, and nonvisualization of right ovary. MRI was planned, but was then cancelled. Surgery was asked to evaluate for possible appendicitis. She is seen and examined in her bed with boyfriend present. She reports her pain is less than before but still there in RLQ. She had some food for lunch earlier today, but "went straight to the bathroom" with more diarrhea, very watery. She had liquids for dinner and tolerated ok. She has not had Tylenol for at least several hours. She appears comfortable, and moves well in bed. WBC today is down from 9 to 5. She has had no fevers, but reports feeling hot last night. - History Source History Provided By: Patient Limitations to Obtaining History: No Limitations - Past Medical History ...LMP Comment: irregular periods - had 3d in Feb, Nov was last normal x6d ...: Yes ...: 1 Infectious Disease: No: STD's Additional Medical History: denies - Past Surgical History Past Surgical History: Yes: None - Alcohol/Substance Use Hx Alcohol Use: Yes (occasional, last New Years) History of Substance Use: reports: Marijuana (few times/month, last on Friday) - Smoking History Smoking history: Never smoked (but smokes hookah occasionally) Have you smoked in the past 12 months: No Aproximately how many cigarettes per day: 0 - Social History ADL: Independent Home Medications - Allergies Allergies/Adverse Reactions: Allergies Allergy/AdvReac Type Severity Reaction Status Date / Time nickel Allergy Intermediate Verified 03/15/18 06:57 lactase [From Dairy Aid] Allergy Verified 03/15/18 06:57 lentils Allergy Verified 03/15/18 06:57 raw vegetable Allergy Verified 03/15/18 06:57 wheat Allergy Verified 03/15/18 06:57 - Home Medications Home Medications: Ambulatory Orders Nitrofurantoin Monohyd/M-Cryst [Macrobid -] 100 mg PO BID #14 capsule 03/15/18 Family Disease History - Family Disease History Family Disease History: Diabetes: Grandparent, Other: Mother (asthma) Review of Systems - Review of Systems Constitutional: reports: Fever (subjective Sat and yest), Loss of Appetite ( less than usual because of diarrhea and pain). denies: Chills Eyes: denies: Blurred Vision, Recent Change in Vision HENT: denies: Difficult Swallowing, Throat Pain Neck: denies: Swollen Glands, Tenderness Cardiovascular: denies: Chest Pain, Palpitations Respiratory: denies: Cough, SOB Gastrointestinal: reports: Abdominal Pain (with hpi), Diarrhea (tends to with lactose intolerance, different on Friday with hpi), Nausea (with hpi). denies : Constipation, Vomiting Genitourinary: reports: Vaginal Bleeding (spotted Friday but not otherwise recently). denies: Burning, Dysuria, Frequency, Urgency Breasts: reports: No Symptoms Reported Musculoskeletal: denies: Back Pain, Joint Pain, Muscle Pain Integumentary: denies: Change in Color, Rash Neurological: denies: Dizziness, Headache Physical Exam Vital Signs: Vital Signs Temperature 99.2 F 03/16/18 17:00 Pulse Rate 88 03/16/18 17:00 Respiratory Rate 20 03/16/18 17:00 Blood Pressure 120/70 03/16/18 17:00 O2 Sat by Pulse Oximetry (%) 99 03/15/18 21:59 Constitutional: Yes: No Distress, Calm, Obese Eyes: Yes: Conjunctiva Clear, EOM Intact HENT: Yes: Atraumatic, Normocephalic Neck: Yes: Supple, Trachea Midline Cardiovascular: Yes: Regular Rate and Rhythm Respiratory: Yes: Regular, CTA Bilaterally Gastrointestinal: Yes: Soft, Abdomen, Obese, Hypoactive Bowel Sounds, Tenderness (RLQ and laterally toward hip, less medially and lower/groin, no alton/ guard; not elsewhere). No: Tenderness, Epigastrium, Tenderness, Rebound ...Rectal Exam: Yes: Deferred Renal/: No: CVA Tenderness - Left, CVA Tenderness - Right Musculoskeletal: No: Joint Stiffness, Joint Swelling Extremities: No: Cool, Cyanosis Edema: No Peripheral Pulses WNL: Yes Integumentary: No: Jaundice, Rash Neurological: Yes: Alert, Oriented Psychiatric: Yes: Alert, Oriented Labs: CBC, BMP 03/16/18 06:30 03/16/18 06:30 wbc down from 9, still normal K low CMP Sodium 136 mmol/L (136-145) 03/16/18 06:30 Potassium 3.4 mmol/L (3.5-5.1) L 03/16/18 06:30 Chloride 106 mmol/L (98-107) 03/16/18 06:30 Carbon Dioxide 22 mmol/L (21-32) 03/16/18 06:30 Anion Gap 7 MMOL/L (8-16) L 03/16/18 06:30 BUN 6 mg/dL (7-18) L 03/16/18 06:30 Creatinine 0.4 mg/dL (0.55-1.3) L 03/16/18 06:30 Creat Clearance w eGFR > 60 (>60) 03/16/18 06:30 Random Glucose 82 mg/dL (74-106) 03/16/18 06:30 Calcium 7.4 mg/dL (8.5-10.1) L 03/16/18 06:30 Phosphorus 2.8 mg/dL (2.5-4.9) 03/16/18 06:30 Magnesium 1.8 mg/dL (1.8-2.4) 03/16/18 06:30 Total Bilirubin 0.5 mg/dL (0.2-1) 03/16/18 06:30 AST 11 U/L (15-37) L 03/16/18 06:30 ALT 30 U/L (13-61) 03/16/18 06:30 Alkaline Phosphatase 64 U/L (45-117) 03/16/18 06:30 C-Reactive Protein 4.5 MG/DL (0.00-0.3) H 03/16/18 02:15 Total Protein 6.3 g/dl (6.4-8.2) L 03/16/18 06:30 Albumin 3.0 g/dl (3.4-5.0) L 03/16/18 06:30 Beta HCG, Quant 171.6 mIU/ml 03/16/18 06:30 HCG up from 149 INR, PTT INR 1.15 (0.83-1.09) H 03/16/18 06:30 Urine Test Results Urine Color Yellow 03/15/18 07:55 Urine Appearance Cloudy 03/15/18 07:55 Urine pH 5.0 (5.0-8.0) 03/15/18 07:55 Ur Specific [place] 1.030 (1.010-1.035) 03/15/18 07:55 Urine Protein 1+ (NEGATIVE) H 03/15/18 07:55 Urine Glucose (UA) Negative (NEGATIVE) 03/15/18 07:55 Urine Ketones Trace (NEGATIVE) H 03/15/18 07:55 Urine Blood Negative (NEGATIVE) 03/15/18 07:55 Urine Nitrite Positive (NEGATIVE) 03/15/18 07:55 Urine Bilirubin Negative (<2.0 mg/dL) 03/15/18 07:55 Ur Leukocyte Esterase Trace (NEGATIVE) 03/15/18 07:55 Ur Epithelial Cells Few /HPF (FEW) 03/15/18 07:55 Urine Bacteria Moderate /hpf (NONE SEEN) 03/15/18 07:55 Urine Mucus Many 03/15/18 07:55 Imaging - Results Ultrasound: Report Reviewed (pelvic/TV noted - uterus with prominent endometrial stripe, no IUP visualized, L ovary normal, R ovary not visualized, no mention of appendix, no free fluid in cul de sac) Problem List - Problems (1) RLQ abdominal pain Assessment/Plan: not surgical abdomen would not consider OR without CT or MRI for definitive diagnosis, but appendicitis is highly unlikely, given 3-day history of symptoms, normal wbc, improving pain and mild/focal tenderness only UTI present, being treated, f/u culture early , not yet clear if IUP or ectopic, R ovary not visualized on ultrasound may need MRI for cross-sectional imaging or repeat US, depending on clinical course and HCG trend - defer to DIRECTOR MEDICAL SCIENCE for identifying location given that other coworkers were also sick, gastroenteritis is possible doubt C. diff - ID consult noted agree with DIRECTOR MEDICAL SCIENCE to check GC, chlamydia - defer to them ok for liquid diet as tolerated, unless held for further diagnostic testing tylenol prn for pain Thank you for the opportunity to participate in the care of this patient. Code(s): R10.31 - RIGHT LOWER QUADRANT PAIN (2) Right lower quadrant abdominal tenderness without rebound tenderness Code(s): R10.813 - RIGHT LOWER QUADRANT ABDOMINAL TENDERNESS (3) Cystitis during in first trimester, antepartum Assessment/Plan: f/u cx, on abx LF GNB Code(s): O23.11 - INFECTIONS OF BLADDER IN , FIRST TRIMESTER (4) Currently in first trimester with unknown gestational age Code(s): Z34.91 - ENCNTR FOR SUPRVSN OF NORMAL PREG, UNSP, FIRST TRIMESTER
[2018-03-17] MEDS ORDERED: CEFTRIAXONE 1 GM in DEXTROSE 5%-WATER - 50 ML IVPB SCH (10:00)
[2018-03-17] MEDS ORDERED: DEXTROSE 5%-WATER - 50 ML IVPB ONE (10:34)
[2018-03-17] MEDS ORDERED: cefTRIAXone SODIUM 1 GM VIAL ONE (10:34)
--- NOTE | 2018-03-17 13:11 | PN ---
Teaching Attending Note Name of Resident: Mervat Buenrostro ATTENDING PHYSICIAN STATEMENT I saw and evaluated the patient. I reviewed the resident's note and discussed the case with the resident. I agree with the resident's findings and plan as documented. SUBJECTIVE: Patient has no further abdominal pain. has formed stools with blood. OBJECTIVE: Vital Signs Temperature 98.8 F 03/17/18 09:00 Pulse Rate 84 03/17/18 09:00 Respiratory Rate 20 03/17/18 09:00 Blood Pressure 110/60 03/17/18 09:00 O2 Sat by Pulse Oximetry (%) 99 03/15/18 21:59 GENERAL: AOX3 NAD, obese , nice female. HEAD: NCAT, NECK: supple , no JVD, or masses. no lymphadenopathy EYES: extraocular movements intact, sclera anicteric, conjunctiva clear. EARS, NOSE, THROAT: oropharynx clear without exudates. MMM LUNGS: CTAB HEART: RRR, normal S1 and S2 without m/r/g ABDOMEN: Soft, RUq mild tenderness, normoactive bowel sounds, no guarding, no rebound, no masses. MUSCULOSKELETAL: Normal range of motion at all joints. No bony deformities or tenderness. EXTREMITIES: 2+ pulses, warm, well-perfused. No calf tenderness. No peripheral edema. NEUROLOGICAL: Cranial nerves II-XII intact. Normal speech. PSYCHIATRIC: Cooperative. Good eye contact. Appropriate mood and affect. SKIN: Warm, dry, normal turgor, no rashes or lesions noted, normal capillary refill. CBCD WBC 5.8 K/mm3 (4.0-10.0) 03/16/18 06:30 RBC 3.69 M/mm3 (3.60-5.2) 03/16/18 06:30 Hgb 11.0 GM/dL (10.7-15.3) 03/16/18 06:30 Hct 30.9 % (32.4-45.2) L 03/16/18 06:30 MCV 83.8 fl (80-96) 03/16/18 06:30 MCHC 35.5 g/dl (32.0-36.0) 03/16/18 06:30 RDW 15.0 % (11.6-15.6) 03/16/18 06:30 Plt Count 317 K/MM3 (134-434) 03/16/18 06:30 MPV 8.4 fl (7.5-11.1) 03/16/18 06:30 CMP Sodium 136 mmol/L (136-145) 03/16/18 06:30 Potassium 3.4 mmol/L (3.5-5.1) L 03/16/18 06:30 Chloride 106 mmol/L (98-107) 03/16/18 06:30 Carbon Dioxide 22 mmol/L (21-32) 03/16/18 06:30 Anion Gap 7 MMOL/L (8-16) L 03/16/18 06:30 BUN 6 mg/dL (7-18) L 03/16/18 06:30 Creatinine 0.4 mg/dL (0.55-1.3) L 03/16/18 06:30 Creat Clearance w eGFR > 60 (>60) 03/16/18 06:30 Random Glucose 82 mg/dL (74-106) 03/16/18 06:30 Calcium 7.4 mg/dL (8.5-10.1) L 03/16/18 06:30 Total Bilirubin 0.5 mg/dL (0.2-1) 03/16/18 06:30 AST 11 U/L (15-37) L 03/16/18 06:30 ALT 30 U/L (13-61) 03/16/18 06:30 Alkaline Phosphatase 64 U/L (45-117) 03/16/18 06:30 Total Protein 6.3 g/dl (6.4-8.2) L 03/16/18 06:30 Albumin 3.0 g/dl (3.4-5.0) L 03/16/18 06:30 Current Medications Generic Name Dose Route Start Last Admin Trade Name Freq PRN Reason Stop Dose Admin Acetaminophen 650 mg 03/15/18 22:22 Tylenol - PO Q4H PRN PAIN LEVEL 1-5 OR FEVER Potassium Chloride/Dextrose/Sod Cl 20 meq in 1,000 mls @ 125 mls/hr 03/16/18 09:15 03/16/18 21:00 D5-1/2ns+20 Meq Kcl - IV 03/17/18 17:14 125 mls/hr ASDIR YASH Administration Ceftriaxone Sodium 1 gm/ 50 mls @ 100 mls/hr 03/17/18 10:00 03/17/18 10:46 Dextrose IVPB 100 mls/hr DAILY YASH Administration Protocol Influenza Virus Vaccine Quadrival 60 mcg 03/18/18 10:00 Fluarix Quad [id number] Syringe IM 03/18/18 10:01 ONCE ONE Multivit/Folic Acid/Iron 1 tab 03/16/18 16:15 03/17/18 10:48 Vitamins (Sjr) - PO 1 tab DAILY YASH Administration Home Medications Medication Instructions Recorded Nitrofurantoin Monohyd/M-Cryst 100 mg PO BID #14 capsule 03/15/18 [Macrobid -] Microbiology 03/16/18 08:40 Stool Salmonella/Shigella Culture - Preliminary NO ENTERIC PATHOGENS, 24 HOURS, ON PRIMARY PLATES 03/16/18 08:40 Stool Yersinia Culture - Preliminary NO ENTERIC PATHOGENS, 24 HOURS, ON PRIMARY PLATES 03/16/18 08:40 Stool Vibrio Culture - Final NO GROWTH OF VIBRIO SPECIES OBTAINED 03/16/18 08:40 Stool Escherichia coli 0157 Culture - Final NO GROWTH OF E COLI 0157 OBTAINED 03/15/18 07:55 Urine - Urine Clean Catch Urine Culture - Final Escherichia Coli 03/16/18 08:40 Stool Clostridium difficile Antigen (AYO) - Final 03/16/18 08:40 Stool Clostridium difficile Toxin Assay - Final 03/16/18 08:40 Stool Clostridium difficile Antigen (AYO) - Preliminary 03/16/18 08:40 Stool Clostridium difficile Toxin Assay - Preliminary 03/15/18 07:55 Urine - Urine Clean Catch Urine Culture - Preliminary Lactose Fermenting Neg Bacilli ASSESSMENT AND PLAN: Patient is a 17yo Female with no significant PMHx, presented to ED. c/o having sore throat, productive cough, diarrhea x 6 and intermittent sharp RLQ abdominal pain x 3day , stated that everybody is sick at work. with subjective fever and nausea overnight. # RUQ pain improved , us of abdomen us negative, was ordered MRI of abdomen but as per nurse, radiology is hesitant to do the MRi of the abdomen, since patient is 2 weeks . surgical evaluation by dr Broderick , no surgical belly noted as per Dr. Askew. # Acute UTI growing LFNB , on Rocephin IV x2 days, will discharge the patient on Amoxicillin for 5 more days, will add Bacid 2x per day for life . Culture of stool is negative, will discharge the patient , will follow the culture if anything is growing will discuss with ID for further care. 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 # Obesity with BMI of 36k # Diarrhea positive for cdif antigen, negative for toxin, as per ID , no neccessary to treat the patient at this time as per iD, follow with the primary ,patient has an appointment this .follow with the OBGYN within a week. will discharge the patient on Amoxicillin 500mg po tid x 5 more days, Bacid 2x per day for life. discussed with the mother in details, discussed in details that her hemoglobin is stable, US of kidneys are normal , US of abdomen no acute pathology , gallblader is normal report, also discussed that will follow the culture if anything comes back positive will discuss with our ID doctor and call them.
--- NOTE | 2018-03-17 15:25 | DS ---
Physical Exam: SUBJECTIVE: Patient seen and examined at bedside. No acute events overnight. OBJECTIVE: Vital Signs Period Temp Pulse Resp BP Sys/Ferguson Pulse Ox Last 24 Hr 98.0 F-99.2 F 72-88 20-20 100-120/60-70 PHYSICAL EXAM GENERAL: AAOx3. NAD. Obese. HEENT: AT/NC. EOMI. CELIA. Moist mucus membranes. LUNGS: CTA B/L. No wheezes noted. HEART: RRR, normal S1 and S2 without m/r/g ABDOMEN: Soft, mildly TTP in RLQ. -Babin sign. -Rovsing sign. No rebound tenderness. No masses noted. Hypoactive bowel sounds. MUSCULOSKELETAL: Normal range of motion at all joints. No bony deformities or tenderness. UPPER EXTREMITIES: 2+ pulses, warm, well-perfused. No cyanosis. No clubbing. No peripheral edema. LOWER EXTREMITIES: 2+ pulses, warm, well-perfused. No calf tenderness. No peripheral edema. NEUROLOGICAL: Cranial nerves II-XII intact. Normal speech. PSYCHIATRIC: Cooperative. Good eye contact. Appropriate mood and affect. SKIN: Warm, dry, normal turgor, no rashes or lesions noted, normal capillary refill. LABS HOSPITAL COURSE: Date of Admission:03/15/18 IMAGING: * Transvaginal U/S: Significantly thickened endometrial stripe 2.2 cm in AP dimension. No IU gestational sac present. No free fluid in cul-de-sac. Non- visualization of R ovary. * Pelvic U/S: Nonvisualization of appendix. No free fluid/collection in RLQ or Shabazz's pouch. * Renal U/S: Nl kidneys w/ no evidence of nephrolithiasis, hydronephrosis, or acute pathology. Date of Discharge: 03/17/18 Discharge Summary Reason For Visit: ,ABDOMINAL PAIN Condition: Stable - Instructions Diet, Activity, Other Instructions: You were seen in the hospital for complaints of abdominal pain with nausea. In the hospital, you had a positive test and were further evaluated by the OBGYN. Additionally, labs showed you have a UTI (urinary tract infection) . You were given antibiotics for the UTI. Due to your complaints of diarrhea, you were evaluated by an infectious disease doctor. You are being discharged home with instructions to follow up with your primary care physician and OBGYN. MEDICAL RECOMMENDATIONS Please take Amoxicillin 500mg (1 pill) three times a day for the next five days Also take Bacid twice a day and continue vitamins daily. Please take a Vitamin once daily. It is STRONGLY advised to eat a low-fat diet. It is recommended to lose weight and to avoid eating foods that are high in fat (including, but not limited to fried food, fast food, etc). since you are still semi-formed stool , we would like to continue with bland diet such as rich, tea, toast. if you continue to have diarrhea and do not feel well please come back to the hospital. we will inform your supervisor printing and stamping on if your stool culture positive for any organism. and you will treated if needed. CONSULT RECOMMENDATIONS Please follow up with your primary care physician, Dr. Clau Thacker, within 1 week. Please follow up with your OBGYN, Dr. Strong, for a repeat ultrasound and blood tests. If you experience chest pain, abdominal pain, worsening nausea/vomiting, fever/ chills, or other associated symptoms, please proceed to your nearest emergency room immediately. Referrals: Lisa Strong MD [Staff Physician] - 1 Week Clau Thacker MD [Non Staff, Medical] - 03/19/18 10:00 am Disposition: HOME - Home Medications Comprehensive Discharge Medication List: Ambulatory Orders Amoxicillin - [Amoxicillin 500mg Capsule -] 500 mg PO TID #15 capsule 03/17/18 Lactobacillus Acidophilus [Bacid -] 1 each PO BID #60 capsule 03/17/18 Pnv No.121/Iron/Folic Acid [ Multivitamin Tablet] 1 each PO DAILY #30 tablet 03/17/18
[2018-03-17] MEDS ORDERED: LACTOBACILLUS ACIDOPHILUS 1 TABLET PO ONE (15:59)
[2018-03-17 18:50] VITALS: PULSE 88; TEMP 98.6
[2018-03-17 19:04] VITALS: BP 120/60
[2018-03-18] MEDS ORDERED: FLU VACCINE QUAD 60 MCG/0.5 ML (MDV 18-19) IM ONE (10:00)
== END 2018-03-17 17:55 | disposition home or self-care (01) ==
LOC: JER 05:41 → JERBED 19:20 → J3W 03-16 00:51
PROVIDERS: ADMIT Internal Medicine; ATTEND Internal Medicine
PROC: 3E033GC Introduction of Other Therapeutic Substance into Peripheral Vein, Percutaneous Approach (ICD-10-PCS; principal; 2018-03-15)
PROC: 3E03329 Introduction of Other Anti-infective into Peripheral Vein, Percutaneous Approach (ICD-10-PCS; 2018-03-15)
DX: O26.891 Other specified pregnancy related conditions, first trimester (principal); O23.31 Infections of other parts of urinary tract in pregnancy, first trimester; B96.20 Unspecified Escherichia coli [E. coli] as the cause of diseases classified elsewhere; O99.211 Obesity complicating pregnancy, first trimester; Z68.36 Body mass index [BMI] 36.0-36.9, adult; Z3A.00 Weeks of gestation of pregnancy not specified
CPT/HCPCS: 36415; 76775-TC; 76817-TC; 76856-TC; 80053; 81003; 81015; 82272; 83735; 84100; 84702; 84703; 85025; 85610; 85730; 86140; 86850; 86900; 86901; 87045; 87046; 87086; 87177; 87186; 87209; 87324; 87449; 87491; 87591; 87804; 93005; 93010; 96374; 96375; 99283-25; G0378; J0131; J1644; J7030

== ENCOUNTER 2018-04-24 13:28 | Emergency (ER) | payer OTHER ==
--- NOTE | 2018-04-24 13:35 | PDOC ---
Rapid Medical Evaluation Time Seen by Provider: 04/24/18 13:32 Medical Evaluation: Allergies Allergy/AdvReac Type Severity Reaction Status Date / Time nickel Allergy Intermediate Verified 03/15/18 06:57 lactase [From Dairy Aid] Allergy Verified 03/15/18 06:57 lentils Allergy Verified 03/15/18 06:57 raw vegetable Allergy Verified 03/15/18 06:57 wheat Allergy Verified 03/15/18 06:57 04/24/18 13:32 I have performed a brief in-person evaluation of this patient. Chief complaint: 13 weeks preg by u/s, presenting with "heartburn" and nausea. No lower abd pain, vag bleeding, back pain. Pertinent physical exam findings: No focal abdominal tenderness. Well-hydrated and well-appearing. I have ordered the following: UA/culture, PO Zantac. Patient will proceed to the ED for further evaluation. Discharge Disposition - Diagnosis Discomfort during - Referrals - Patient Instructions - Post Discharge Activity
[2018-04-24] MEDS ORDERED: RANITIDINE HCL 150 MG TABLET (FP) PO ONE (13:36)
[2018-04-24 13:38] VITALS: BMI 38.3
[2018-04-24] MEDS ORDERED: RANITIDINE HCL 150 MG TABLET (FP) ONE (14:21)
--- NOTE | 2018-04-24 14:45 | PDOC ---
History of Present Illness - General Chief Complaint: Pain Stated Complaint: 13 WK PREG / HEARTBURN Time Seen by Provider: 04/24/18 13:32 History Source: Patient Exam Limitations: No Limitations - History of Present Illness Initial Comments: Pt is a 17 yo F, at approximately 12 weeks by US, with no significant PMH, who is presenting with complaints of "burning in her chest" since yesterday morning. The pain is mid-sternal, and feels present throughout the day, but is worsened by lying down and worse after eating. Pt had one episode on NBNB vomiting this AM, and had nausea yesterday. Pt called her DIGESTER OPERATOR doctor's office , and they told her to present to the ER per the pt. She has not taken any OTC medications for the pain. Pt has had this pain before in the past after drinking alcohol which resolved spontaneously. Pt has tested positive for chlamydia twice, is being followed by her DIGESTER OPERATOR. Pt has not informed her partner and he has not been treated. Pt was admitted in March 2018 for this issue, as she presented with RLQ abdominal pain and was worked-up positive for STI. PCP: Dr. Thacker DIGESTER OPERATOR: Dr. Strong (last visit was 04/10/18) Social: Pt denies any cigarette, alcohol, or drug use. No alcohol since becoming . Pt denies any recent travel or sick contacts. Surgical: no relevant history. Family: no relevant history. 04/24/18 15:00 Past History - Travel Traveled outside of the country in the last 30 days: No Close contact w/someone who was outside of country & ill: No - Past Medical History Allergies/Adverse Reactions: Allergies Allergy/AdvReac Type Severity Reaction Status Date / Time nickel Allergy Intermediate Verified 04/24/18 13:33 lactase [From Dairy Aid] Allergy Verified 04/24/18 13:33 lentils Allergy Verified 04/24/18 13:33 raw vegetable Allergy Verified 04/24/18 13:33 wheat Allergy Verified 04/24/18 13:33 Home Medications: Ambulatory Orders Pnv No.121/Iron/Folic Acid [ Multivitamin Tablet] 1 each PO DAILY #30 tablet 03/17/18 Nitrofurantoin Monohyd/M-Cryst [Macrobid -] 100 mg PO BID 7 Days #14 capsule Omeprazole 20 mg PO DAILY PRN #30 tablet. 04/24/18 COPD: No DVT: No Diabetes: No GI Disorders: No HTN: No Hypercholesterolemia: No - Surgical History Abdominal Surgery: No GI Surgery: No - Reproductive History Is Patient Now?: Yes (13 weeks) (#): 1 Para: 0 Spontaneous : 0 - Immunization History Immunization Up to Date: Yes - Suicide/Smoking/Psychosocial Hx Smoking Status: No Smoking History: Never smoked Have you smoked in the past 12 months: No Number of Cigarettes Smoked Daily: 0 Cigars Per Day: 0 Hx Alcohol Use: No Drug/Substance Use Hx: No Substance Use Type: None Review of Systems - Review of Systems Able to Perform ROS?: Yes Is the patient limited Sami proficient: No Constitutional: Yes: Weight Stable. No: Chills, Diaphoresis, Fever, Loss of Appetite, Malaise, Weakness HEENTM: No: Recent change in vision, Nose Congestion, Throat Swelling, Difficulty Swallowing Respiratory: No: Cough, Orthopnea, Shortness of Breath Cardiac (ROS): Yes: See HPI, Other ("burning chest discomfort"). No: Chest Pain , Edema, Irregular Heart Rate, Lightheadedness, Palpitations, Syncope, Chest Tightness ABD/GI: Yes: See HPI, Nausea, Vomiting, Indigestion. No: Abdominal Distended, Constipated, Diarrhea, Poor Appetite, Poor Fluid Intake, Abdominal cramping, Tarry Stools : No: Burning, Dysuria, Discharge, Frequency, Flank Pain, Hematuria, Incontinence, Pain, Urgency Musculoskeletal: No: Back Pain, Joint Pain Integumentary: No: Rash Neurological: No: Headache, Numbness, Dizziness Psychiatric: No: Sleep Pattern Change, Change in Appetite Endocrine: No: Increased Urine, Change in Weight Hematologic/Lymphatic: No: Anemia, Blood Clots, Easy Bleeding, Easy Bruising All Other Systems: Reviewed and Negative *Physical Exam - Vital Signs Last Vital Signs Temp Pulse Resp BP Pulse Ox 98.9 F 97 H 18 120/67 97 04/24/18 13:34 04/24/18 13:34 04/24/18 13:34 04/24/18 13:34 04/24/18 13:34 - Physical Exam Comments: Vitals stable, pt afebrile. Pt in NAD, normal body habitus for . PE showed pt alert and oriented. wallpaper cleaner generally intact, muscular strength and sensation intact. Eyes PERRLA, EOMI. Oropharynx without erythema or exudates. No nasal congestion, hearing intact. Clear heart sounds, S1/S2, no JVD, b/l pedal edema, or heart murmur. Clear lung sounds, no respiratory distress, wheezes, crackles, or accessory muscle use. No abdominal or CVA tenderness to palpation, no rebound, no guarding. Fundal height appropriate for gestational age. Abdomen soft, non-distended, and with normoactive bowel sounds. Skin without jaundice or rash. 04/24/18 15:26 Moderate Sedation - Procedure Monitoring Vital Signs: Procedure Monitoring Vital Signs Temperature 98.9 F 04/24/18 13:34 Pulse Rate 97 H 04/24/18 13:34 Respiratory Rate 18 04/24/18 13:34 Blood Pressure 120/67 04/24/18 13:34 O2 Sat by Pulse Oximetry (%) 97 04/24/18 13:34 ED Treatment Course - Medications Given in the ED: ED Medications Discontinued Medications Generic Name Dose Route Start Last Admin Trade Name Freq PRN Reason Stop Dose Admin Ranitidine HCl 150 mg 04/24/18 13:36 04/24/18 14:25 Zantac - PO 04/24/18 13:37 150 mg ONCE ONE Administration Medical Decision Making - Medical Decision Making Pt was seen at bedside, also will be seen by attending Dr. Gordon. Pt presenting with complaints of "burning in her chest" since yesterday morning. The pain is mid-sternal, and feels present throughout the day, but is worsened by lying down and worse after eating. Pt had one episode on NBNB vomiting this AM, and had nausea yesterday. Pt called her DIGESTER OPERATOR doctor's office, and they told her to present to the ER per the pt. She has not taken any OTC medications for the pain. Pt has had this pain before in the past after drinking alcohol which resolved spontaneously. No fever/chills, vaginal discharge, urinary symptoms currently. Pt has tested positive for chlamydia twice, is being followed by her DIGESTER OPERATOR. Pt has not informed her partner and he has not been treated. Pt was admitted in March 2018 for this issue, as she presented with RLQ abdominal pain and was worked-up positive for STI. Vitals stable, pt afebrile. Pt in NAD, normal body habitus for . PE showed pt alert and oriented. wallpaper cleaner generally intact, muscular strength and sensation intact. Eyes PERRLA, EOMI. Oropharynx without erythema or exudates. No nasal congestion, hearing intact. Clear heart sounds, S1/S2, no JVD, b/l pedal edema, or heart murmur. Clear lung sounds, no respiratory distress, wheezes, crackles, or accessory muscle use. No abdominal or CVA tenderness to palpation, no rebound, no guarding. Fundal height appropriate for gestational age. Abdomen soft, non-distended, and with normoactive bowel sounds. Skin without jaundice or rash. Likely acid reflux, as pt has had this pain before with spontaneous resolution, worsened after eating. Vitals stable and pain minimal, no GI bleed, less concern for ulcer or duodenal/gastric rupture. Pt has no cardiac history, no family history of ACS. Ordered work-up including UA and urine culture. Provided 150 mg PO zantac for improvement of burning sensation in chest. Provided PO water. Will continue to reassess pt and monitor for symptomatic improvement. 04/24/18 14:43 Pain not improved after Zantac. Providing 20 mg PO protonix one time and 4 mg SL zofran. Can provide 20 mg omeprazole PO if protonix is effective. 04/24/18 15:12 Pt feeling much improved after protonix. Will prescribe omeprazole to pt pharmacy. UA showed +1 -- sent Macrobid to pt pharmacy (last micro showed sensitivity). Considering symptomatic improvement, pt can be discharged to home with follow- up. Pt advised to follow-up with PCP and DIGESTER OPERATOR withiin 1-2 days. Strict return precautions provided with pt understanding. 04/24/18 16:11 *DC/Admit/Observation/Transfer Diagnosis at time of Disposition: Discomfort during Acid reflux Qualifiers: Esophagitis presence: esophagitis presence not specified Qualified Code(s): K21.9 - Gastro-esophageal reflux disease without esophagitis Urinary tract infection Qualifiers: Urinary tract infection type: site unspecified Hematuria presence: without hematuria Qualified Code(s): N39.0 - Urinary tract infection, site not specified - Discharge Dispostion Disposition: HOME Condition at time of disposition: Good Decision to Admit order: No - Prescriptions Prescriptions: Nitrofurantoin Monohyd/M-Cryst [Macrobid -] 100 mg PO BID 7 Days #14 capsule Omeprazole 20 mg PO DAILY PRN #30 tablet.dr GUZMAN Reason: Indigestion - Referrals Referrals: Clau Thacker MD [Primary Care Provider] - Lisa Strong MD [Staff Physician] - - Patient Instructions Printed Discharge Instructions: DI for Gastroesophageal Reflux Disease (GERD) Additional Instructions: You were seen in the ER today for burning in your chest, which is likely acid reflux. The results of your labs also showed a urinary tract infection. Please follow-up with your primary care doctor and DIGESTER OPERATOR within 1-2 days to discuss your visit and make sure your symptoms have improved. Please return to the ER if you have any worsening pain, blood in your stool or vomit, development of fevers or chills, loss of consciousness, inability to tolerate food or fluids, urinary burning which does not improve with the antibiotics, or any other concerns. I have sent an acid web machine tender (omeprazole, once per day as needed, take 30 minutes before meals), and an antibiotic (for urinary infection) to your pharmacy. Please continue drinking lots of fluids and you can sleep upright if it helps with your acid. - Post Discharge Activity
[2018-04-24] MEDS ORDERED: ONDANSETRON *ODT* 4 MG TABLET SL ONE (15:09)
[2018-04-24] MEDS ORDERED: PANTOPRAZOLE 20 MG TABLET (FP) PO ONE (15:12)
[2018-04-24] MEDS ORDERED: PANTOPRAZOLE 40 MG TABLET (FP) ONE (15:21)
[2018-04-24] MEDS ORDERED: ONDANSETRON *ODT* 4 MG TABLET ONE (15:22)
[2018-04-24 15:52] LABS: URINE APPEARANCE SLCLOUDY; URINE BILIRUBIN NEGATIVE (<2.0 mg/dL); URINE COLOR DKYELLOW; URINE GLUCOSE (UA) NEGATIVE (NEGATIVE); URINE KETONE NEGATIVE (NEGATIVE); URINE LEUK ESTERASE 1+ (NEGATIVE); URINE NITRITE NEGATIVE (NEGATIVE); URINE PROTEIN 1+ (NEGATIVE); URINE UROBILINOGEN NEGATIVE mg/dL (0.2-1.0)
[2018-04-24 16:01] LABS: EPI CELLS FEW /HPF (FEW); URINE MUCUS MANY
--- NOTE | 2018-04-24 16:17 | PDOC ---
Attending Attestation - HPI HPI: 04/24/18 16:18 The patient is a 12 weeks 17 year old female , with no significant PMH, who presents to the emergency department complaining of burning in her chest beginning yesterday morning. The patient reports the pain is constant, midsternal, worse after eating and worsened after lying down. The patient states she had one episode of non bloody non bilious emesis this morning. The patient reports she called her DIRECTOR [place] and was advised to come to the ED for further evaluation. The patient states she has experienced the same pain in the past after drinking alcohol which resolved on its own. The patient denies any recent vaginal bleeding or discharge. Denies any recent abdominal pain or cramping. The patient denies palpitations, shortness of breath, headache and dizziness. Denies fever, chills, diarrhea and constipation. Denies dysuria, frequency, urgency and hematuria. Allergies: nickel, lactase, lentils, raw vegetables, wheat PCP: Dr. Thacker DIRECTOR [place]: Dr. Strong (last visit was 04/10/18) Documentation prepared by Ha Almanzar, acting as medical numerical control operator for Casper Gordon MD. - Physicial Exam PE: 04/24/18 16:19 Vitals: Triage vital signs reviewed General Appearance: No acute distress, well nourished, well developed Head: Atraumatic Neck: Supple; No nuchal rigidity Chest Wall: Nontender Cardiac: Regular rate and rhythm, no murmurs, no rubs, no gallops Lungs: Clear to auscultation bilateral, good air movement bilaterally Abdomen: Soft, nondistended, normal bowel sounds, nontender to palpation Rectal: Exam deferred Extremities: Full range of motion to all extremities, no cyanosis, clubbing, or edema Skin: Warm and dry, no rashes or lesions, no rash, no petechiae Psych: Normal mood, normal affect <Ha Almanzar - Last Filed: 04/24/18 16:18> - Resident Resident Name: Marielle Grace - ED Attending Attestation I have performed the following: I have examined & evaluated the patient, The case was reviewed & discussed with the resident, I agree w/resident's findings & plan, Exceptions are as noted - Medical Decision Making 04/24/18 18:51 Examination consistent with dyspepsia during status post GI cocktail patient feels much better well-appearing no apparent distress no abdominal discomfort no vaginal bleeding patient has DIRECTOR [place] follow-up will discharge home on omeprazole Questionable he positive UTI on examination Given we'll treat with Macrobid Findings, the need for follow-up and strict return instructions discussed patient. <Casper Gordon - Last Filed: 04/24/18 18:51>
[2018-04-24 16:45] VITALS: BP 118/65; PULSE 90; TEMP 98.1
== END 2018-04-24 16:20 | disposition home or self-care (01) ==
LOC: JER 13:28
DX: O26.891 Other specified pregnancy related conditions, first trimester (principal); O99.611 Diseases of the digestive system complicating pregnancy, first trimester; K92.89 Other specified diseases of the digestive system; K21.9 Gastro-esophageal reflux disease without esophagitis; O23.31 Infections of other parts of urinary tract in pregnancy, first trimester; Z3A.13 13 weeks gestation of pregnancy
CPT/HCPCS: 81003; 81015; 87086; 99283-25; Q0162

== ENCOUNTER 2019-03-19 08:27 | Emergency (ER) | payer OTHER ==
[2019-03-19 08:33] VITALS: BP 133/84; BMI 27.9
[2019-03-19] MEDS ORDERED: IBUPROFEN 600 MG TABLET (FP) PO ONE ×2 (08:51→08:54)
[2019-03-19] MEDS ORDERED: ONDANSETRON *ODT* 4 MG TABLET ONE (09:03)
[2019-03-19] MEDS ORDERED: ONDANSETRON *ODT* 4 MG TABLET SL ONE (09:03)
--- NOTE | 2019-03-19 09:07 | PDOC ---
History of Present Illness - General Chief Complaint: Cold Symptoms Stated Complaint: FEVER/HEADACHE History Source: Patient Exam Limitations: No Limitations - History of Present Illness Initial Comments: 03/19/19 09:01 Patient is a 18-year-old female with no past medical history here with complaints of fever, coughing, sore throat, headache generalized, vomiting, decreased appetite since last night. Patient states she went to urgent care and was instructed to take Tylenol and sent home. States at 5 AM this morning her temperature was 102.5 at which time she took the Tylenol. Described the headache as generalized now 10/17, throbbing. Patient states she has been vomiting since yesterday x3 episodes. Denies dysuria. No flu shot this year. PMD: Dr. Velasquez PMHX: as above PSOCHX: neg etoh, drug, cig ALL: NKDA GENERAL/CONSTITUTIONAL: [No fever or chills. No weakness. No weight change.] HEAD, EYES, EARS, NOSE AND THROAT: [No change in vision. No ear pain or discharge. No sore throat.] CARDIOVASCULAR: [No chest pain or shortness of breath.] RESPIRATORY: [(+) cough, (-) wheezing, or hemoptysis.] GASTROINTESTINAL: [No nausea, vomiting, diarrhea or constipation. No rectal bleeding.] GENITOURINARY: [No dysuria, frequency, or change in urination.] MUSCULOSKELETAL: [No joint or muscle swelling or pain. No neck or back pain.] SKIN AND BREASTS: [No rash or easy bruising.] NEUROLOGIC: [(+) headache, vertigo, LOC SYCHIATRIC: [No depression or anxiety.] ENDOCRINE: [No increased thirst. No abnormal weight change.] HEMATOLOGIC/LYMPHATIC: [No anemia, easy bleeding, or history of blood clots.] ALLERGIC/IMMUNOLOGIC: [No hives or skin allergy. No latex allergy.] GENERAL: [The patient is awake, alert, and fully oriented, in no acute distress. ] HEAD: [Normal with no signs of trauma.] EYES: [Pupils equal, round and reactive to light, extraocular movements intact, sclera anicteric, conjunctiva clear.] ENT: [Ears normal, nares patent, oropharynx clear without exudates. Moist mucous membranes.] NECK: [Normal range of motion, supple without lymphadenopathy, JVD, or masses.] LUNGS: [Breath sounds equal, clear to auscultation bilaterally. No wheezes, and no crackles.] HEART: [Regular rate and rhythm, normal S1 and S2 without murmur, rub.] ABDOMEN: [Soft, nontender, normoactive bowel sounds. No guarding, no rebound. No masses.] EXTREMITIES: [Normal range of motion, no edema. No clubbing or cyanosis. No cords, erythema, or tenderness.] NEUROLOGICAL: [Cranial nerves II through XII grossly intact. Normal speech, normal gait.] PSYCH: [Normal mood, normal affect.] SKIN: [Warm, Dry, normal turgor, no rashes or lesions noted.] Past History - Past Medical History Allergies/Adverse Reactions: Allergies Allergy/AdvReac Type Severity Reaction Status Date / Time nickel Allergy Intermediate Verified 04/24/18 13:33 lactase [From Dairy Aid] Allergy Verified 04/24/18 13:33 lentils Allergy Verified 04/24/18 13:33 raw vegetable Allergy Verified 04/24/18 13:33 wheat Allergy Verified 04/24/18 13:33 Home Medications: Ambulatory Orders Pnv No.121/Iron/Folic Acid [ Multivitamin Tablet] 1 each PO DAILY #30 tablet 03/17/18 Nitrofurantoin Monohyd/M-Cryst [Macrobid -] 100 mg PO BID 7 Days #14 capsule Omeprazole 20 mg PO DAILY PRN #30 tablet. 04/24/18 Ondansetron [Zofran *Odt*] 4 mg SL TID #14 od.tablet 03/19/19 Oseltamivir Phosphate [Tamiflu] 75 mg PO BID #5 capsule 03/19/19 COPD: No DVT: No Diabetes: No GI Disorders: No HTN: No Hypercholesterolemia: No - Surgical History Abdominal Surgery: No GI Surgery: No - Reproductive History (#): 1 Para: 0 Spontaneous : 0 - Immunization History Immunization Up to Date: Yes - Psycho Social/Smoking Cessation Hx Smoking Status: No Smoking History: Never smoked Have you smoked in the past 12 months: No Number of Cigarettes Smoked Daily: 0 Cigars Per Day: 0 Information on smoking cessation initiated: No Hx Alcohol Use: No Drug/Substance Use Hx: No Substance Use Type: None *Physical Exam - Vital Signs Last Vital Signs Temp Pulse Resp BP Pulse Ox 102 F H 124 H 18 133/84 98 03/19/19 08:31 03/19/19 08:31 03/19/19 08:31 03/19/19 08:31 03/19/19 08:31 ED Treatment Course - Medications Given in the ED: ED Medications Discontinued Medications Generic Name Dose Route Start Last Admin Trade Name Sarath PRN Reason Stop Dose Admin Ibuprofen 600 mg 03/19/19 08:54 03/19/19 08:56 Motrin - PO 03/19/19 08:55 600 mg ONCE ONE Administration Medical Decision Making - Medical Decision Making 03/19/19 09:07 03/19/19 09:01 Patient is a 18-year-old female with no past medical history here with complaints of fever, coughing, sore throat, headache generalized, vomiting, decreased appetite since last night. Patient states she went to urgent care and was instructed to take Tylenol and sent home. States at 5 AM this morning her temperature was 102.5 at which time she took the Tylenol. Described the headache as generalized now 8/10, throbbing. Patient states she has been vomiting since yesterday x3 episodes. Denies dysuria. No flu shot this year. Symptoms consistent with flulike illness. Motrin 600 mg p.o. and Zofran 4 mg p.o. Will have patient p.o. hydrate. Reassess 03/19/19 09:33 Laboratory Tests 03/19/19 08:00 Influenza A (Rapid) Negative Influenza B (Rapid) Positive A Tamiflu offered but patient refused however will take prescription for Zofran for nausea. Patient feels improved states she is sweating. Selected Entries 03/19/19 10:28 Temperature 99.3 F Pulse Rate [ 100 H Left] At discharge patient decided she wanted to Tamiflu sent to the pharmacy. I discussed the physical exam findings, ancillary test results and final diagnoses with the patient. I answered all of the patient's questions. The patient was satisfied with the care received and felt comfortable with the discharge plan and treatment plan. The Patient agrees to follow up with the primary care physician within 24-72 hours. Discharge - Discharge Information Problems reviewed: Yes Clinical Impression/Diagnosis: Influenza B Condition: Stable Disposition: HOME - Additional Discharge Information Prescriptions: Ondansetron [Zofran *Odt*] 4 mg SL TID #14 od.tablet - Follow up/Referral Referrals: Amanda Rolon MD [Primary Care Provider] - - Patient Discharge Instructions Patient Printed Discharge Instructions: DI for Influenza -- Adult Additional Instructions: Your Discharge Instructions: You must call primary care physician within 24 hours to arrange follow-up. Return to the Emergency Department with any new, persistent or worsening symptoms, for fever, chills, SOB, dizziness or any other concerning changes that may occur. Continue Tylenol every 4 hours and Motrin every 6 hours for fever and pain. Do not go to work until you are fever free for 24 hours. - Post Discharge Activity Work/Back to School Note: Back to Work
[2019-03-19 10:28] VITALS: PULSE 100; TEMP 99.3
== END 2019-03-19 10:32 | disposition home or self-care (01) ==
LOC: JERFT 08:27 → SUPCPDRO 08:27 → JERFT 10:32
DX: J10.1 Influenza due to other identified influenza virus with other respiratory manifestations (principal); Z91.011 Allergy to milk products; Z91.018 Allergy to other foods; Z91.09 Other allergy status, other than to drugs and biological substances
CPT/HCPCS: 87804; 99282-25; Q0162